=== PATIENT | male | born 1955 | race Caucasian/White ===

== ENCOUNTER → 2017-08-01 | Outpatient (CLI) | payer OTHER ==
[2017-08-01 09:13] LABS: ALBUMIN 4.6 g/dL (3.4-5.0); ALBUMIN/GLOBULIN RATIO 1.4 (1.0-1.7); ALK PHOS 86 U/L (46-116); ALT (SGPT) 46 U/L (16-63); ANION GAP 10 (6-14); AST (SGOT) 20 U/L (15-37); BLOOD UREA NITROGEN 17 mg/dL (8-26); BUN/CREATININE RATIO 17 (6-20); CALCIUM 9.2 mg/dL (8.5-10.1); CARBON DIOXIDE 26 mmol/L (21-32); CHLORIDE 101 mmol/L (98-107); CHOLESTEROL 231 mg/dL (0-200); GFR 76.2; GLUCOSE 105 mg/dL (70-99); HDLC 43 mg/dL (40-60); LDLC 152 mg/dL (0-100); NON-HDL CHOLESTEROL 188 mg/dL (0-129); SODIUM 137 mmol/L (136-145); TOTAL BILIRUBIN 0.6 mg/dL (0.2-1.0); TRIGLYCERIDES 178 mg/dL (0-150); VLDLC 36 mg/dL (0-40)
[2017-08-01 09:17] LABS: CHOLESTEROL/HDL RATIO 5.4
== END | disposition home or self-care (01) ==
LOC: NM 09:43
DX: I70.0 Atherosclerosis of aorta (principal)
CPT/HCPCS: 36415; 80053; 80061; 93017